=== PATIENT | male | born 1975 | race Caucasian/White ===

== ENCOUNTER 2017-06-02 15:16 | Emergency (ER) | payer OTHER ==
[~2017-06-02] VITALS: Ht 167.6 cm; Wt 63.5 kg
[2017-06-02] MEDS ORDERED: VALIUM2 MG ORAL (15:31)
[2017-06-02] MEDS ORDERED: PHENOBARBITAL15 MG PO (15:31)
[2017-06-02] MEDS ORDERED: LORAZEPAM1 MG ORAL (15:31)
--- NOTE | 2017-06-02 16:06 | Emergency Room Report ---
History of Present Illness General Chief Complaint: Skin Rash/Abscess Source: Patient Present Illness HPI 42-year-old male presents to the emergency department complaining of severe tender rash generalized all over his body. Patient states that his rash has been progressive for several months. Patient reports that he now has bilateral lower extremity swelling with erythema. Patient reports tenderness to the bilateral lower extremities. He reports having "soreness" in the posterior calf and thighs bilaterally. Patient denies recent travel, prolonged periods of being sedentary. He denies fevers or chills. He reports severe itching. He denies contacts with similar symptoms. Denies new medications or body washes or creams. Denies swelling of the lips, tongue , throat or airway. Denies wheezing, or shortness of breath. Denies blisters, or oral lesions. He does reports flaking of the skin. Denies Cardiac Hx of HTN. Allergies: Coded Allergies: No Known Allergies (Unverified , 06/02/17) Patient History Past Medical History: see triage record Past Surgical History: none Pertinent Family History: none Reviewed Nursing Documentation: PMH: Agreed; PSxH: Agreed Nursing Documentation-PMH Hx Seizures: Yes Review of Systems All Other Systems: negative except mentioned in HPI Physical Exam Vital Signs Date Time Temp Pulse Resp B/P (MAP) Pulse Ox O2 Delivery O2 Flow Rate FiO2 06/02/17 15:26 98.6 88 21 133/81 100 Room Air 98.6 Sp02 EP Interpretation: reviewed, normal General Appearance: no apparent distress, alert, GCS 15, non-toxic Head: normocephalic, atraumatic Eyes: bilateral eye normal inspection, bilateral eye PERRL ENT: hearing grossly normal, normal voice Neck: full range of motion Respiratory: chest non-tender, lungs clear, normal breath sounds, speaking full sentences Cardiovascular #1: regular rate, rhythm, normal capillary refill, edema - bilateral edema with associated erythema. Gastrointestinal: normal bowel sounds, non tender, soft Rectal: deferred Musculoskeletal: back normal, gait/station normal, normal range of motion, non- tender, inflammation - Bilateral LE's and ankles, swelling - Bilateral LE's and ankles, associated erythema Bilateral LE's and ankles Neurologic: alert, oriented x3, responsive, motor strength/tone normal, sensory intact, speech normal, grossly normal Psychiatric: judgement/insight normal Skin: warm/dry, well hydrated, rash - significant psoriatic rash that is confluent and appears to be universal in distribution. There are multiple open scabs to the bilateral lower extremities with obvious excoriations. These scabs overlie soft tissue that is swollen, erythematous and has increased temperature palpation. The distal ankles and feet are subsequently swollen as well with some erythema. Unable to palpate peripheral pulses due to nonpitting edema. No obvious blisters or vesicles., other Lymphatic: no adenopathy Medical Decision Making PA Attestation Dr. villagran is my supervising Physician whom patient management has been discussed with. Diagnostic Impression: Primary Impression: Cellulitis Qualified Codes: L03.115 - Cellulitis of right lower limb Additional Impressions: Psoriasis universalis Edema Qualified Codes: R60.9 - Edema, unspecified ER Course 42-year-old male presents to the emergency department complaining of severe tender rash generalized all over his body. Patient states that his rash has been progressive for several months. Patient reports that he now has bilateral lower extremity swelling with erythema. Patient reports tenderness to the bilateral lower extremities. He reports having "soreness" in the posterior calf and thighs bilaterally. Patient denies recent travel, prolonged periods of being sedentary. He denies fevers or chills. He reports severe itching. He denies contacts with similar symptoms. Denies new medications or body washes or creams. Denies swelling of the lips, tongue , throat or airway. Denies wheezing, or shortness of breath. Denies blisters, or oral lesions. He does reports flaking of the skin. Denies Cardiac Hx of HTN. Ddx considered but are not limited to cellulitis, Venous Stasis, DVT, dependent edema, d/L, gout just to name a few. Vital signs: are WNL, pt. 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 ORDERS: -CBC: no leukocytosis, evidence of anemia, and significantly elevated eosinophil % of 21 on the differential. CMP: Within normal limits Lactic acid: Elevated at 2.4 Blood cultures: Pending Lower extremity venous Doppler duplex bilaterally to rule out DVT: Negative for DVT ED INTERVENTIONS: -1 g vancomycin IV - 60 mg Solu-Medrol -Benadryl 25mg IV -Initial disposition was to admit patient for IV antibiotics. This admission was declined by insurance as well as assigned hydrotherapist Dr. Holder. DISCHARGE: At this time pt. is stable for d/c to home. Will provide printed patient care instructions, and any necessary prescriptions. Care plan and follow up instructions have been discussed with the patient prior to discharge. Labs Test 06/02/17 17:00 White Blood Count 6.2 K/UL (4.8-10.8) Red Blood Count 4.19 M/UL (4.70-6.10) Hemoglobin 14.9 G/DL (14.2-18.0) Hematocrit 41.1 % (42.0-52.0) Mean Corpuscular Volume 98 FL (80-99) Mean Corpuscular Hemoglobin 35.6 PG (27.0-31.0) Mean Corpuscular Hemoglobin Concent 36.3 G/DL (32.0-36.0) Red Cell Distribution Width 11.8 % (11.6-14.8) Platelet Count 229 K/UL (150-450) Mean Platelet Volume 4.4 FL (6.5-10.1) Neutrophils (%) (Auto) % (45.0-75.0) Lymphocytes (%) (Auto) % (20.0-45.0) Monocytes (%) (Auto) % (1.0-10.0) Eosinophils (%) (Auto) % (0.0-3.0) Basophils (%) (Auto) % (0.0-2.0) Differential Total Cells Counted 100 Neutrophils % (Manual) 60 % (45-75) Lymphocytes % (Manual) 8 % (20-45) Monocytes % (Manual) 10 % (1-10) Eosinophils % (Manual) 21 % (0-3) Basophils % (Manual) 1 % (0-2) Band Neutrophils 0 % (0-8) Platelet Estimate Adequate Platelet Morphology Normal Polychromasia 1+ Macrocytosis 1+ Urine Color Yellow Urine Appearance Clear Urine pH 5 (4.5-8.0) Urine Specific [place] 1.015 (1.005-1.035) Urine Protein Negative (NEGATIVE) Urine Glucose (UA) Negative (NEGATIVE) Urine Ketones Negative (NEGATIVE) Urine Occult Blood Negative (NEGATIVE) Urine Nitrite Negative (NEGATIVE) Urine Bilirubin Negative (NEGATIVE) Urine Urobilinogen Normal MG/DL (0.0-1.0) Urine Leukocyte Esterase Negative (NEGATIVE) Sodium Level 141 MMOL/L (136-145) Potassium Level 4.0 MMOL/L (3.5-5.1) Chloride Level 103 MMOL/L (98-107) Carbon Dioxide Level 25 MMOL/L (21-32) Anion Gap 13 mmol/L (5-15) Blood Urea Nitrogen 3 mg/dL (7-18) Creatinine 0.7 MG/DL (0.55-1.30) Estimat Glomerular Filtration Rate > 60 mL/min (>60) Glucose Level 90 MG/DL (74-106) Lactic Acid Level 2.40 mmol/L (0.66-2.22) Calcium Level 8.5 MG/DL (8.5-10.1) Total Bilirubin 0.7 MG/DL (0.2-1.0) Aspartate Amino Transf (AST/SGOT) 26 U/L (15-37) Alanine Aminotransferase (ALT/SGPT) 26 U/L (12-78) Alkaline Phosphatase 92 U/L (46-116) Total Protein 7.2 G/DL (6.4-8.2) Albumin 3.4 G/DL (3.4-5.0) Globulin 3.8 g/dL Albumin/Globulin Ratio 0.9 (1.0-2.7) Chest X-Ray Diagnostic Results Chest X-Ray Diagnostic Results : Chest X-Ray Ordered: Yes # of Views/Limited/Complete: 1 View Indication: Other EP Interpretation: Yes PA Xray: Interpretation reviewed, by supervising MD, and agrees with findings. Interpretation: no consolidation, no effusion, no pneumothorax, no acute cardiopulmonary disease Impression: No acute disease Electronically Signed by: Kendal Norwood PA-C Last Vital Signs Date Time Temp Pulse Resp B/P (MAP) Pulse Ox O2 Delivery O2 Flow Rate FiO2 06/02/17 15:26 98.6 88 21 133/81 100 Room Air 98.6 Disposition: HOME, SELF-CARE - Per Dr. Mike and Pt. insurance company - communication with : "[employer]" Condition: Stable Scripts Diphenhydramine Hcl* (BENADRYL*) 25 Mg Capsule 25 MG ORAL Q6H PRN for Itching, #20 CAP Prov: Kendal Norwood PEmmy 06/02/17 Trimethoprim/Sulfamethoxazole (Bactrim Ds Tablet) 1 Each Tablet 1 TAB ORAL TWICE A DAY for 7 Days, #14 TAB Prov: Kendal Norwood 06/02/17 Cephalexin* (KEFLEX*) 500 Mg Capsule 500 MG ORAL EVERY 12 HOURS for 7 Days, #14 CAP 0 Refills Prov: Kendal Norwood 06/02/17 Prednisone* (PREDNISONE*) 20 Mg Tablet 40 MG ORAL DAILY, #10 TAB Prov: Kendal Norwood 06/02/17 Patient Instructions: Cellulitis, [id number], Edema, [id number], Psoriasis , [id number] Additional Instructions: Take medications as directed. Follow up with Urgent Dermatology, or PCP this needs to be facilitated by your insurance provider and your PCP. Do not drink alcohol, drive, or operate heavy machinery while taking Benadryl as this may cause drowsiness. !!Return sooner to ED if new symptoms occur, or current symptoms become worse - Please note that this Emergency Department Report was dictated using [employer] paralegal technology software, occasionally this can lead to erroneous entry secondary to interpretation by the dictation equipment. Kendal Norwood Jun 02, 2017 16:06
[2017-06-02 17:33] LABS: HEMATOCRIT 41.1 % (42.0-52.0); HEMOGLOBIN 14.9 G/DL (14.2-18.0); MEAN CORPUSCULAR VOLUME 98 FL (80-99); PLATELET COUNT 229 K/UL (150-450); RED BLOOD COUNT 4.19 M/UL (4.70-6.10); RED CELL DISTRIBUTION WIDTH 11.8 % (11.6-14.8); WHITE BLOOD COUNT 6.2 K/UL (4.8-10.8)
[2017-06-02 17:46] LABS: ANION GAP 13 mmol/L (5-15); BLOOD UREA NITROGEN 3 mg/dL (7-18); CALCIUM 8.5 MG/DL (8.5-10.1); CARBON DIOXIDE 25 MMOL/L (21-32); CHLORIDE 103 MMOL/L (98-107); CREATININE 0.7 MG/DL (0.55-1.30); SODIUM 141 MMOL/L (136-145)
[2017-06-02 17:50] LABS: APPEARANCE,URINE CLEAR; BILIRUBIN, URINE NEGATIVE (NEGATIVE); GLUCOSE, URINE (UA) NEGATIVE (NEGATIVE); KETONES,URINE NEGATIVE (NEGATIVE); LEUKOCYTE ESTERASE ,URINE NEGATIVE (NEGATIVE); NITRITE,URINE NEGATIVE (NEGATIVE); PH,URINE 5 (4.5-8.0); PROTEIN,URINE NEGATIVE (NEGATIVE); UROBILINOGEN,URINE NORMAL MG/DL (0.0-1.0)
[2017-06-02 17:51] LABS: ALANINE AMINOTRANSFERASE 26 U/L (12-78); ALBUMIN 3.4 G/DL (3.4-5.0); ALBUMIN/GLOBULIN RATIO 0.9 (1.0-2.7); ALKALINE PHOSPHATASE 92 U/L (46-116); ASPARTATE AMINO TRANSFERASE 26 U/L (15-37); BILIRUBIN,TOTAL 0.7 MG/DL (0.2-1.0)
[2017-06-02 17:52] LABS: COLOR,URINE YELLOW
[2017-06-02] MEDS ORDERED: Vancomycin 1 GM in NS 275 ML IVPB ONE (18:15)
[2017-06-02] MEDS ORDERED: DiphenhydrAMINE 50mg/ml Inj IVP ONE ×2 (18:15→21:15)
[2017-06-02] MEDS ORDERED: Solu-MEDROL 125mg Inj IVP ONE (18:15)
[2017-06-02] MEDS ORDERED: BACTRIM-DS1 EA ORAL (20:13)
[2017-06-02] MEDS ORDERED: BENADRYL25 MG ORAL (20:13)
[2017-06-02] MEDS ORDERED: CEPHALEXIN500 MG ORAL (20:13)
[2017-06-02] MEDS ORDERED: PREDNISONE20 MG ORAL (20:13)
[2017-06-02 21:40] VITALS: BP 132/81
[2017-06-02 21:45] VITALS: BP 132/81
--- NOTE | 2017-06-03 | Diagnostic Imaging Report ---
APPROVED REPORT CPT Code: 20273 Present Symptoms Comments: BILATERAL LEGS SWELLING. BILATERAL: Imaging reveals a patent deep venous system bilaterally. There is no evidence of thrombus within the femoral, popliteal or tibial segments. The greater saphenous veins are also within normal limits. Doppler indicates normal spontaneous flow within these segments.
--- NOTE | 2017-06-03 10:53 | Diagnostic Imaging Report ---
Indication: Pain Technique: XRAY Chest 1v Comparison: None Findings: Heart size and mediastinal contours are within normal limits given technique. There is no focal consolidation, pneumothorax or pleural effusion. Osseous structures demonstrate no acute abnormality. Impression: No radiographic evidence of acute cardiopulmonary disease.
== END 2017-06-02 21:45 | disposition home or self-care (01) ==
LOC: EMR 16:32
DX: L03.115 Cellulitis of right lower limb (principal); L40.8 Other psoriasis; R60.0 Localized edema
CPT/HCPCS: 36415; 71045; 80053; 81003; 83605; 85007; 85025; 87040; 93970; 96374; 96375; 99284; J1200; J2930; J3370; J7050